=== PATIENT | female | born 1985 | race Caucasian/White ===

== ENCOUNTER 2020-09-02 08:47 | Observation (INO) ==
[2020-09-02] MEDS ORDERED: Ondansetron 4 MG/2 ML VIAL IVP ONE ×3 (09:58→15:07)
[2020-09-02] MEDS ORDERED: 0.9 % Sodium Chloride 1,000 ML IVC ONE ×2 (09:58→15:07)
[2020-09-02 10:33] LABS: Basophils % 0.3 %; Eosinophils % 0.2 %; Hematocrit 38.5 % (35.3-44.9); Hemoglobin 12.2 g/dL (11.5-15.4); Immature Granulocytes % 0.2 % (0-4); Lymphocytes # 0.9 K/mcL (0.6-4.6); Lymphocytes % 9.7 %; Mean Corpuscular HGB Conc 31.7 g/dL (31.6-35.5); Mean Corpuscular Hemoglobin 30.3 pg (28.0-33.3); Mean Corpuscular Volume 95.5 fL (83.0-100.0); Monocytes # 0.3 K/mcL (0.0-1.3); Monocytes % 2.7 %; Neutrophils # 8.3 K/mcL (1.6-8.9); Platelet Count 236 K/mcL (140-400); Red Blood Count 4.03 M/mcL (3.82-4.97); Red Cell Distribution Width 12.5 % (11.5-14.5); Segmented Neutrophils % 86.9 %; White Blood Count 9.5 K/mcL (4.3-11.1)
[2020-09-02 10:45] LABS: BUN/Creatinine Ratio 18 (6-26); Blood Urea Nitrogen 12 mg/dL (6-20); Calcium 9.8 mg/dL (8.6-10.3); Carbon Dioxide 27 mEq/L (23-29); Chloride 105 mEq/L (98-107); Glucose 113 mg/dL (70-105); Osmolality,Calculated 289 (280-300); Potassium 3.8 mEq/L (3.5-5.1); Sodium 139 mEq/L (136-145); eGFR For African Americans > 60 (> 60); eGFR For Non-African Americans > 60 (> 60)
[2020-09-02] MEDS ORDERED: Metoclopramide 10 MG/2 ML VIAL IVP ONE (13:26)
[2020-09-02 13:31] LABS: Bilirubin,Urine Negative (Negative); Blood,Urine Trace (Negative); Clarity,Urine Clear (Clear); Color,Urine Light-Yellow (Yellow); Glucose,Urine (UA) Normal (Normal); Ketones,Urine 10 mg/dL (Negative); Leukocyte Esterase,Urine Negative (Negative); Mucus,Urine Few per lpf (None-Few); Nitrite,Urine Negative (Negative); PH,Urine 7.5 pH Units (5.0-8.0); Protein,Urine 50 mg/dL (Neg-Trace); Specific Gravity,Urine 1.023 (1.010-1.025); Squamous Epithelial Cell,Urine Few per hpf (None-Few); Urobilinogen,Urine Normal (Normal); WBC,Urine 0-3 per hpf (0-3)
[2020-09-02] MEDS ORDERED: Haloperidol Lactate 5 MG/ML VIAL IVP ONE (15:32)
[2020-09-02 18:00] LABS: Alanine Aminotransferase 17 Units/L (7-52); Albumin 4.7 g/dL (3.5-5.7); Albumin/Globulin Ratio 1.3 (1.1-2.2); Alkaline Phosphatase 49 Units/L (34-104); Aspartate Amino Transferase 16 Units/L (13-39); Bilirubin,Direct 0.1 mg/dL (0.0-0.2); Bilirubin,Indirect 0.3 mg/dL (0.0-1.0); Bilirubin,Total 0.4 mg/dL (0.3-1.0); Globulin 3.5 g/dL (2.4-3.5); Total Protein 8.2 g/dL (6.4-8.9)
[2020-09-02 18:39] LABS: Amphetamine Screen,Urine Negative ng/mL (Cutoff=1000); Barbiturate Screen,Urine Negative ng/mL (Cutoff=200); Benzodiazepines Screen,Urine Negative ng/mL (Cutoff=200); Cannabinoid Screen,Urine Negative ng/mL (Cutoff = 50); Cocaine Screen,Urine Negative ng/mL (Cutoff= 300); Opiate Screen,Urine Negative ng/mL (Cutoff=300); Phencyclidine Screen,Urine Negative ng/mL (Cutoff=25)
[2020-09-02] MEDS ORDERED: Naloxone 0.4 MG/ML INJ IVP PRN (18:48)
[2020-09-02] MEDS ORDERED: SUMAtriptan succinate 50 MG TABLET PO PRN (18:49)
[2020-09-02] MEDS: Ondansetron 4 MG/2 ML VIAL IVP PRN (19:43)
[2020-09-02] MEDS: 0.9 % Sodium Chloride 1,000 ML IVC SCH (20:39)
[2020-09-02] MEDS: Metoclopramide 10 MG/2 ML VIAL IVP PRN (22:01)
[2020-09-03] MEDS: Ondansetron 4 MG/2 ML VIAL IVP PRN (03:37)
[2020-09-03 05:45] LABS: Basophils % 0.2 %; Hematocrit 32.3 % (35.3-44.9); Immature Granulocytes % 0.4 % (0-4); Lymphocytes % 12.2 %; Mean Corpuscular HGB Conc 31.3 g/dL (31.6-35.5); Mean Corpuscular Volume 95.8 fL (83.0-100.0); Mean Platelet Volume 11.3 fL (9.4-12.4); Monocytes # 0.7 K/mcL (0.0-1.3); Neutrophils # 6.5 K/mcL (1.6-8.9); Platelet Count 175 K/mcL (140-400); Red Blood Count 3.37 M/mcL (3.82-4.97); Red Cell Distribution Width 12.7 % (11.5-14.5); Segmented Neutrophils % 78.2 %; White Blood Count 8.3 K/mcL (4.3-11.1)
[2020-09-03 05:48] LABS: Hemoglobin 10.1 g/dL (11.5-15.4)
[2020-09-03] MEDS: 0.9 % Sodium Chloride 1,000 ML IVC SCH (06:02)
[2020-09-03 06:04] LABS: BUN/Creatinine Ratio 16 (6-26); Blood Urea Nitrogen 11 mg/dL (6-20); Calcium 8.7 mg/dL (8.6-10.3); Carbon Dioxide 24 mEq/L (23-29); Chloride 110 mEq/L (98-107); Glucose 98 mg/dL (70-105); Magnesium 1.9 mg/dL (1.6-2.6); Osmolality,Calculated 291 (280-300); Potassium 3.4 mEq/L (3.5-5.1); Sodium 141 mEq/L (136-145); eGFR For African Americans > 60 (> 60); eGFR For Non-African Americans > 60 (> 60)
[2020-09-03] MEDS: Metoclopramide 10 MG/2 ML VIAL IVP PRN (06:37)
[2020-09-03] MEDS ORDERED: Acetaminophen 325 MG TABLET PO PRN (20:14)
[2020-09-04 06:28] VITALS: BP 96/57
[2020-09-04 07:39] LABS: BUN/Creatinine Ratio 13 (6-26); Blood Urea Nitrogen 8 mg/dL (6-20); Calcium 8.9 mg/dL (8.6-10.3); Carbon Dioxide 25 mEq/L (23-29); Chloride 106 mEq/L (98-107); Glucose 92 mg/dL (70-105); Magnesium 1.9 mg/dL (1.6-2.6); Osmolality,Calculated 278 (280-300); Potassium 4.1 mEq/L (3.5-5.1); Sodium 135 mEq/L (136-145); eGFR For African Americans > 60 (> 60); eGFR For Non-African Americans > 60 (> 60)
== END 2020-09-04 10:59 | disposition home or self-care (01) ==
LOC: EMEROOARM 08:47 → 3ANU 08:47 → SUATTDRO 19:20 → 3ANU 20:25
PROVIDERS: ADMIT Internal Medicine; ATTEND Internal Medicine